=== PATIENT | male | born 2000 | race Caucasian/White ===

== ENCOUNTER 2023-09-05 16:58 | Inpatient (IN) | payer OTHER ==
[~2023-09-05] VITALS: Ht 188 cm; Wt 73.7 kg
[2023-09-05] MEDS ORDERED: Haloperidol Lactate 5 MG/ML VIAL IV ONE (17:30)
[2023-09-05] MEDS ORDERED: NS 1,000 ML IV ONE (17:30)
[2023-09-05 17:57] LABS: HEMATOCRIT 51.4 % (42.0-52.0); MEAN CELL VOLUME 86 fl (80.0-100.0); MEAN CORPUSCULAR HEMOGLOBIN 32 pg (27-31); MEAN CORPUSCULAR HGB CONC 37 g/dl (33.0-37.0); MEAN PLATELET VOLUME 9.9 fl (7.4-10.4); PLATELET COUNT 383 K/mm3 (130-400); RED BLOOD COUNT 5.97 M/mm3 (4.20-5.60); REDCELL DISTRIBUTION WIDTH-CV 12.1 % (11.5-14.5)
[2023-09-05 18:22] LABS: ALBUMIN 6.3 gm/dL (3.5-5.0); BILIRUBIN,TOTAL 1.8 mg/dL (0.2-1.2); C-REACTIVE PROTEIN 6.52 mg/dL (0.00-0.50); CALCIUM 11.8 mg/dL (8.4-10.2); CREATININE, serum 5.99 mg/dL (0.72-1.25); POTASSIUM 3.9 mmol/L (3.5-4.5); TOTAL PROTEIN 10.6 gm/dL (6.2-8.1)
[2023-09-05] MEDS ORDERED: Sucralfate Susp 1 GM/10 ML UD PO SCH (18:38)
[2023-09-05] MEDS ORDERED: Ondansetron 4 MG/2 ML VIAL IV PRN (18:45)
[2023-09-05] MEDS ORDERED: LR 1,000 ML IV SCH (18:45)
[2023-09-05] MEDS ORDERED: LR 1,000 ML IV ONE (18:45)
[2023-09-05] MEDS ORDERED: Acetaminophen 325 MG TAB PO PRN (18:45)
[2023-09-05] MEDS ORDERED: Docusate Sodium 100 MG CAP PO PRN (18:45)
[2023-09-05 18:55] LABS: URINE APPEARANCE Hazy (CLEAR/HAZY); URINE COLOR YELLOW (YELLOW)
[2023-09-05 18:57] LABS: PH 5.5 (5.0-8.5); URINE GLUCOSE NEGATIVE (NEGATIVE); URINE KETONE 1+ (NEGATIVE); URINE PROTEIN(semi-quant) 3+ (BEGATIVE)
[2023-09-05 18:58] LABS: URINE BLOOD 3+ (NEGATIVE); URINE NITRATE NEGATIVE (NEGATIVE); URINE UROBILINOGEN 0.2 E.U/dL (0.2-1.0)
[2023-09-05 19:03] LABS: URINE BACTERIA Many /hpf (NONE SEEN); URINE RBC 20-50 /hpf (0-2)
[2023-09-05 19:14] LABS: BAND 4 % (0-10); LYMPHOCYTE 8 % (20.0-51.0); NEUTROPHILS 82 % (42.0-75.2)
[2023-09-05 19:15] LABS: ANISOCYTOSIS 1+; PLATELET ESTIMATE NORMAL (NORMAL)
[2023-09-05] MEDS ORDERED: cefTRIAXone 1 G in Water For Injection,Sterile 10 ML IV ONE (19:15)
[2023-09-05] MEDS ORDERED: Pantoprazole 40 MG in NS 10 ML IV SCH (21:00)
--- NOTE | 2023-09-05 22:00 | NUR ---
Patient arrived to the unit at this time with belongings. Denies any pain. States he is feeling a little queezy but not too bad. States he would like to try some applesauce and broth, provided. Denies any other needs at this time. Assessment and med rec complete. IV in right AC flushes easily with no complications. Denies any muscle cramps, muscles in both legs are visibly slightly twitching continuously, patient states he can not feel them twitching. Oriented patient to room, bed, call light, phone, and bathroom. Wrapped patients IV so he could take a shower. Deneis any other needs at this time. Call light and personal items in reach. Bed in low position.
[2023-09-05 22:02] VITALS: BP 139/82; PULSE 83; TEMP 98.3
[2023-09-05 22:21] VITALS: BP 139/82; PULSE 83; TEMP 98.3
[2023-09-05] MEDS ORDERED: ADDERALL20 MG PO (22:21)
[2023-09-05 23:03] LABS: TRICYCLIC ANTIDEPRESS URINE NEGATIVE (NEGATIVE)
[2023-09-05 23:04] LABS: COLLECTION METHOD CATHETER
[2023-09-06] VITALS (14 sets, daily range): BP systolic 110–141; BP diastolic 72–88; PULSE 74–87; TEMP 97.4–98.2
[2023-09-06] MEDS ORDERED: Heparin 5,000 UNITS/ML 1 ML VIAL SQ SCH
--- NOTE | 2023-09-06 06:00 | NUR ---
Patient resting in bed. Denies any pain. States he feels nauseous, prn zofran given. Patient took a shower at this time. Denies any other needs. Call light and personal items in reach. Bed in low position.
[2023-09-06 07:12] LABS: HEMATOCRIT 43.4 % (42.0-52.0); MEAN CELL VOLUME 87 fl (80.0-100.0); MEAN CORPUSCULAR HEMOGLOBIN 32 pg (27-31); MEAN CORPUSCULAR HGB CONC 36 g/dl (33.0-37.0); MEAN PLATELET VOLUME 10.1 fl (7.4-10.4); PLATELET COUNT 291 K/mm3 (130-400); RED BLOOD COUNT 4.99 M/mm3 (4.20-5.60)
[2023-09-06 07:14] LABS: ALBUMIN 4.6 gm/dL (3.5-5.0); CALCIUM 10.2 mg/dL (8.4-10.2); CREATININE, serum 3.63 mg/dL (0.72-1.25); MAGNESIUM 2.9 mg/dL (1.6-2.6); PHOSPHOROUS 6.7 mg/dL (2.3-4.7); POTASSIUM 3.6 mmol/L (3.5-4.5)
[2023-09-06 07:22] LABS: HEMOGLOBIN 15.8 g/dl (13.5-18.0)
[2023-09-06 08:12] LABS: BAND 5 % (0-10); LYMPHOCYTE 7 % (20.0-51.0); NEUTROPHILS 78 % (42.0-75.2); PLATELET ESTIMATE NORMAL (NORMAL)
[2023-09-06] MEDS ORDERED: Influenza Virus Vaccine, Quad '23-24 (6 MOS+) 0.5 ML SYRINGE IM SCH (09:00)
--- NOTE | 2023-09-06 09:34 | NUR ---
NOTIFIED BARRY ASHLEY OF LAB RESULTS @ 0800.
--- NOTE | 2023-09-06 09:37 | NUR ---
PT UP INDEPENDENTLY TO SHOWER X2 SO FAR
--- NOTE | 2023-09-06 10:37 | NUR ---
PT'S MOTHER CALLED FOR UPDATES, PT GAVE VERBAL OK TO SPEAK WITH HER.
--- NOTE | 2023-09-06 14:26 | NUR ---
pipe out worker Shea and Social Work student Alyssa met with pt to dicuss discharge plan. Pt reported he lives in [facility] and his best point of contact is his brother Romel [phone] who was at bedside. Pt reported he gets his medications from [facility] and has no problem affording them. Pt reported he does not have a DPOA-HC and said he is not interested in making one at this time. Pt reported he uses no DME and is independent with all ADLS. Pt has no concerns and plans to return home at time of discharge. Discharge: home
--- NOTE | 2023-09-06 18:26 | NUR ---
D: Initial visit: No Bake Molder stopped by room on rounds. Pt was having nausea and trying to rest. A: Pt was tired and had no needs for the furniture delivery driver area. P: No Bake Molder informed pt that if he needed anything from the furniture delivery driver area to let his nurse know. No Bake Molder will follow up as needed.
--- NOTE | 2023-09-06 19:45 | NUR ---
Patient resting in bed with family at bedside. Denies any pain at this time but states he is nauseous, prn zofran given. Assessment complete. IV in right forearm flushes easily with no complicaitons. Patient stated he wanted to take a shower. IV unhooked. Call light and personal items in reach. Bed in low position.
[2023-09-06] MEDS ORDERED: cefTRIAXone 1 G in Water For Injection,Sterile 10 ML IV SCH (20:00)
[2023-09-07] VITALS (12 sets, daily range): BP systolic 109–151; BP diastolic 61–85; PULSE 67–134; TEMP 97.6–98.7
--- NOTE | 2023-09-07 06:00 | NUR ---
Patient resting in bed with eyes closed. Respirations even and unlabored. No signs of pain or needs at this time. No changes over night. Call light and personal items in reach. Bed in low position.
[2023-09-07 07:04] LABS: BASO % 0.2 % (0.0-2.0); EOS % 0.1 % (0.0-4.0); GRAN # 7.4 K/mm3 (1.4-6.5); GRAN % 68.2 % (42.2-75.2); HEMATOCRIT 37.8 % (42.0-52.0); LYMPH # 2.2 K/mm3 (1.2-3.4); LYMPH % 20.2 % (20.0-51.0); MEAN CELL VOLUME 88 fl (80.0-100.0); MEAN CORPUSCULAR HEMOGLOBIN 32 pg (27-31); MEAN CORPUSCULAR HGB CONC 36 g/dl (33.0-37.0); MEAN PLATELET VOLUME 10.1 fl (7.4-10.4); MONO # 1.2 K/mm3 (0.1-0.6); PLATELET COUNT 231 K/mm3 (130-400); RED BLOOD COUNT 4.32 M/mm3 (4.20-5.60); REDCELL DISTRIBUTION WIDTH-CV 11.8 % (11.5-14.5)
[2023-09-07 07:09] LABS: HEMOGLOBIN 13.7 g/dl (13.5-18.0)
[2023-09-07 07:12] LABS: CALCIUM 9.3 mg/dL (8.4-10.2); CREATININE, serum 1.1 mg/dL (0.72-1.25); MAGNESIUM 2.8 mg/dL (1.6-2.6); POTASSIUM 3.4 mmol/L (3.5-4.5)
--- NOTE | 2023-09-07 08:00 | NUR ---
patient alert and oriented x3. patient expresses " feeling nauseas and I'm scare to eat anything because it might make it worse." patient is going to take a shower to see if it helps again like he has been doing it in the past. call light within reach. bed at lowest position.
[2023-09-07] MEDS ORDERED: ZOFRAN ODT4 MG PO (11:27)
[2023-09-07 12:18] LABS: CREATINE KINASE 2793 U/L (30-200); LIPASE 264 U/L (8-78)
--- NOTE | 2023-09-07 14:50 | NUR ---
Initial visit; Patient said he was doing ok but said he had been nauseous. Sidra appears to be comfortable with [employer] and said that "yes" he would like [employer] to keep him in her prayers and would like another visit from her while he is here. [employer] offered God's blessings and will keep him in her prayers.
--- NOTE | 2023-09-07 18:32 | NUR ---
IV fluids on hold, patient is going to take shower. Cath montague removed per orders.
[2023-09-07] MEDS ORDERED: traZODone 50 MG TAB PO SCH (21:00)
[2023-09-08] VITALS (7 sets, daily range): BP systolic 96–133; BP diastolic 56–85; PULSE 60–75; TEMP 97.9–98.5
--- NOTE | 2023-09-08 02:28 | NUR ---
patient ambulating with steady gait from bathroom to bed, alert and oriented x4. pt denies chest pain and shortness of breath. IV in RAC is patent, site is clean dry and intact with LR running at 150 ml/hr. pt reports nause, zofran given, pt vomitted around 2014. pt still feeling nauseated but reports it being reduced, warm showers have been helping as well. small bruising noted on abd. pt has no further needs, questions, or concerns at this time. call light within reach. will continue to monitor.
--- NOTE | 2023-09-08 07:10 | NUR ---
PATIENT WAS AWAKE AND ALERT SITTING IN SHOWER AT SHIFT CHANGE. DENIED ANY NEEDS OR COMPLAINTS AT THAT TIME. PATIENT AWARE OF PULL CORD IF ASSITANCE NEEDED.
[2023-09-08 07:14] LABS: BASO % 0.2 % (0.0-2.0); EOS # 0.1 K/mm3 (0.0-0.7); EOS % 0.6 % (0.0-4.0); GRAN # 5.2 K/mm3 (1.4-6.5); HEMATOCRIT 38.2 % (42.0-52.0); HEMOGLOBIN 13.1 g/dl (13.5-18.0); LYMPH # 2.7 K/mm3 (1.2-3.4); LYMPH % 30.3 % (20.0-51.0); MEAN CELL VOLUME 89 fl (80.0-100.0); MEAN CORPUSCULAR HEMOGLOBIN 31 pg (27-31); MEAN CORPUSCULAR HGB CONC 34 g/dl (33.0-37.0); MEAN PLATELET VOLUME 10.4 fl (7.4-10.4); MONO # 0.8 K/mm3 (0.1-0.6); MONO % 9.6 % (1.7-9.3); PLATELET COUNT 210 K/mm3 (130-400); RED BLOOD COUNT 4.28 M/mm3 (4.20-5.60); REDCELL DISTRIBUTION WIDTH-CV 11.8 % (11.5-14.5)
[2023-09-08 07:28] LABS: CALCIUM 9.4 mg/dL (8.4-10.2); CREATININE, serum 0.95 mg/dL (0.72-1.25); MAGNESIUM 2.3 mg/dL (1.6-2.6); POTASSIUM 3.7 mmol/L (3.5-4.5)
--- NOTE | 2023-09-08 07:34 | NUR ---
PATIENT AWAKE AND ALERT, SITTING UP IN BED. PATIENT CURRENTLY NAUSEATED. MEDIAITON GIVEN (SEE EMAR). IV FLUIDS INFUSING NOW. PATIENTS CALL LIGHT WITHIN REACH.
--- NOTE | 2023-09-08 07:41 | NUR ---
SHIFT ASSESSMENT COMPLETE. VSS. PATIENT RESTING IN BED AWAITING BRAKFAST. PATIENT REPORTS NO PAIN AT THIS TIME BUT IS HAVING SOME JORDYN, PRIMARY RN NOTIFIED. ALL MORNING MEDS GIVEN PER ORDERS. PATIENT HAS NO OTHER COMPLAINTS AT THIS TIME. CALL LIGHT IN REACH.
--- NOTE | 2023-09-08 10:07 | NUR ---
Follow-up visit; Patient said he is still sick but hopes to leave today. Sidra said he believes alcohol caused his dehydration which affected his kidneys. He said he would drink lots of water and take better care of himself. Technology Assistant offered God's blessings and prays that he will remember what he did to bring him to the hospital in such a dangerous state.
--- NOTE | 2023-09-08 11:19 | NUR ---
PATIENT DID NOT EAT BREAKFAST
[2023-09-08] MEDS ORDERED: MELATONIN3 M1 PO (16:02)
--- NOTE | 2023-09-08 16:27 | NUR ---
IV REMOVED AND PATIENT DRESSING FOR DISCHARGE
--- NOTE | 2023-09-08 17:05 | NUR ---
PATIENT AND HIS BROTHER GIVEN DISCHARGE INSTRUCTIONS AND EDCUATION, WELL FOLLOW UP APT. PATIENT DENIES ANY QUESTIONS. PATIENT TAKEN VIA WHEELCHAIR TO ER ENTRANCE BY PCT WHERE HE LEFT IN STABLE CONDITION.
[2023-09-08] MEDS ORDERED: Melatonin 3 MG TAB PO SCH (21:00)
== END 2023-09-08 17:06 | disposition home or self-care (01) | DRG 683 ==
LOC: COL.ER 16:58 → MEDICAL 19:50
PROVIDERS: Internal Medicine; Nurse Practitioner; Physician Assistant; ADMIT Internal Medicine
DX: N17.9 Acute kidney failure, unspecified (principal); M62.82 Rhabdomyolysis; R11.2 Nausea with vomiting, unspecified; G47.00 Insomnia, unspecified
CPT/HCPCS: C9113; J0696; J1630; J1644; J2405; J7030; J7120